=== PATIENT | female | born 1980 | race Caucasian/White ===

== ENCOUNTER 2016-11-06 10:05 | Emergency (ER) | payer OTHER ==
[2016-11-06 10:47] LABS: BLOOD UREA NITROGEN 12 mg/dL (7-18); CALCIUM 8.5 mg/dL (8.7-10.7); CARBON DIOXIDE 21 mmol/L (21-32); CREATININE 0.6 mg/dL (0.6-1.3); GLUCOSE,RANDOM 126 mg/dL (70-99); SODIUM 135 mmol/L (136-145)
== END 2016-11-06 11:33 | disposition home or self-care (01) ==
LOC: ER 10:05
PROVIDERS: General Practice
DX: M25.562 Pain in left knee (principal); M79.1 Myalgia; F17.210 Nicotine dependence, cigarettes, uncomplicated; Z88.0 Allergy status to penicillin; Z88.1 Allergy status to other antibiotic agents; Z88.8 Allergy status to other drugs, medicaments and biological substances
CPT/HCPCS: 36415; 80048; 85379; 99283